=== PATIENT | male | born 1955 ===

== ENCOUNTER 2025-01-29 09:10 | Inpatient (IN) | payer MEDICARE ==
[~2025-01-29] VITALS: Ht 182.9 cm; Wt 89.5 kg
[2025-01-29] MEDS ORDERED: Ipratropium/Albuterol SulF 2.5-0.5MG/3 ML Amp INH ONE (09:45)
[2025-01-29] MEDS ORDERED: MethylPREDNISolone Sod Succ 125 MG Vial IV ONE (09:45)
[2025-01-29] MEDS ORDERED: NS 500 ML IV SCH (09:50)
[2025-01-29] MEDS ORDERED: Acetaminophen 500 MG Tab PO ONE (09:50)
[2025-01-29 09:59] LABS: BASOPHILS ABSOLUTE AUTO 0.02 K/mm3 (0.00-0.23); BASOPHILS PERCENT AUTO 0 % (0-2); EOSINOPHILS PERCENT AUTO 0 % (0-6); Hematocrit 43.2 % (37.0-53.0); Hemoglobin 14.2 g/dL (13.5-17.5); Mean Corpuscular HGB 33.5 pg (26.0-34.0); Mean Corpuscular HGB Conc 32.9 g/dL (31.5-36.5); Mean Corpuscular Volume 102 fL (80-100); Mean Platelet Volume 9.6 fL (9.1-12.4); NRBC ABSOLUTE 0.03 K/mm3 (0.00-0.02); NRBC Auto 0.2 /100 WBC (0.0-0.2); Platelet Count 125 K/mm3 (150-400); RDW Coefficient Variation 14.5 % (11.7-14.2); RDW Standard Deviation 54.4 fL (35.1-46.3); Red Blood Cell Count 4.24 M/mm3 (4.30-5.90); White Blood Cell Count 17.24 K/mm3 (4.00-11.30)
[2025-01-29 10:06] LABS: IMMATURE GRAN ABSOLUTE AUTO 0.08 K/mm3 (0.00-0.10); IMMATURE GRAN PERCENT AUTO 1 % (0-1); LYMPHOCYTES PERCENT AUTO 67 % (21-46); MONOCYTES ABSOLUTE AUTO 0.29 K/mm3 (0.16-1.47); MONOCYTES PERCENT AUTO 2 % (4-13); NEUTROPHILS ABSOLUTE AUTO 5.35 K/mm3 (1.96-9.15); NEUTROPHILS PERCENT AUTO 31 % (41-73)
[2025-01-29] MEDS ORDERED: Azithromycin 500 MG in NS 250 ML IV ONE (10:15)
[2025-01-29] MEDS ORDERED: CefTRIAXone Sodium 1,000 MG in NS 100 ML IV ONE (10:15)
[2025-01-29 10:19] LABS: Albumin, Blood 2.9 g/dL (3.4-5.0); Albumin/Globulin Ratio 0.8 (0.8-1.8); Bilirubin, Total 0.4 mg/dL (0.1-1.0); Bun/Creatinine Ratio 26.9 (12.0-20.0); Calcium, Blood 7.6 mg/dL (8.5-10.1); Creatinine, Blood 0.89 mg/dL (0.60-1.20); Globulin, Blood 3.5 g/dL (2.2-4.0); Potassium, Blood 3.5 mmol/L (3.5-5.5); Total Protein, Blood 6.4 g/dL (6.4-8.2)
[2025-01-29 10:39] LABS: Influenza B, PCR NEGATIVE (NEGATIVE); Resp Syncytial Virus, PCR NEGATIVE (NEGATIVE); SARS-Cov-2 (COVID-19) PCR, MMC NEGATIVE (NEGATIVE)
[2025-01-29 10:52] LABS: BASOPHILS PERCENT MAN 0 % (0-2); EOSINOPHILS PERCENT MAN 0 % (0-6); LYMPHOCYTES PERCENT MAN 65 % (21-46); MONOCYTES ABSOLUTE MAN 0.34 K/mm3 (0.16-1.47); MONOCYTES PERCENT MAN 2 % (4-13); NEUTROPHILS ABSOLUTE MAN 5.68 K/mm3 (1.96-9.15); SEG NEUTROPHILS PERCENT MAN 33 % (41-73); TOTAL CELLS COUNTED 100
[2025-01-29] MEDS ORDERED: Lactated Ringer's 1,000 ML IV SCH (12:05)
[2025-01-29] MEDS ORDERED: Oseltamivir Phosphate 75 MG Cap PO SCH (15:15)
[2025-01-29 15:52] LABS: Hematocrit 41.2 % (37.0-53.0); Hemoglobin 13.5 g/dL (13.5-17.5); Mean Corpuscular HGB 33.5 pg (26.0-34.0); Mean Corpuscular HGB Conc 32.8 g/dL (31.5-36.5); Mean Corpuscular Volume 102 fL (80-100); Mean Platelet Volume 9.6 fL (9.1-12.4); Platelet Count 118 K/mm3 (150-400); RDW Coefficient Variation 14.6 % (11.7-14.2); RDW Standard Deviation 55.6 fL (35.1-46.3); Red Blood Cell Count 4.03 M/mm3 (4.30-5.90); White Blood Cell Count 18.22 K/mm3 (4.00-11.30)
[2025-01-29] MEDS ORDERED: Albuterol 2.5 MG/3 ML VIAL INH PRN (17:10)
[2025-01-29] MEDS ORDERED: Ipratropium/Albuterol SulF 2.5-0.5MG/3 ML Amp INH SCH (17:10)
[2025-01-29 17:11] LABS: BAND PERCENT MAN 2 % (0-8); BASOPHILS PERCENT MAN 0 % (0-2); EOSINOPHILS PERCENT MAN 0 % (0-6); LYMPHOCYTES ABSOLUTE MAN 12.02 K/mm3 (0.84-5.20); LYMPHOCYTES PERCENT MAN 66 % (21-46); MONOCYTES ABSOLUTE MAN 0.18 K/mm3 (0.16-1.47); MONOCYTES PERCENT MAN 1 % (4-13); NEUTROPHILS ABSOLUTE MAN 6.01 K/mm3 (1.96-9.15); SEG NEUTROPHILS PERCENT MAN 31 % (41-73); TOTAL CELLS COUNTED 100
--- NOTE | 2025-01-29 17:20 | NUR ---
ARRIVAL PATIENT ARRIVES TO UNIT AND TRANSFERED OVER TO BED WITH ASSISTANCE. IS WEAK & NOT VERY STEADY ON FEET. IS ON TELE SHOWING SINUS RYTHM WITH RATE IN 80'S. SATTING BETWEEN 90-94% CURRENLTY ON HEATED HIGH FLOW AT 6 LITERS, DID NEED TO BE PLACED ON NON REBREATHER MASK ALONG WITH NASAL CANNULA FOR SATURATION IN 80'S. AT BEDSIDE. PATIENT DENIED ANY CHEST PAIN/PRESSURE. NO NAUSEA/VOMITTING. BLOOD PRESSURE MAP >65. PATIENT HAS CALL LIGHT WITHIN REACH, BED IN LOWEST BED AND ORIENTED TO THE ROOM. WAS ABLE TO EAT DINNER AND STATING NOTHING IS NEEDED AT THIS TIME.
[2025-01-29 17:29] VITALS: BP 150/74
[2025-01-29 19:50] VITALS: BP 134/80
[2025-01-29] MEDS ORDERED: Sennosides 8.6 MG Tab PO SCH (21:00)
[2025-01-29] MEDS ORDERED: MethylPREDNISolone Sod Succ 125 MG Vial IV SCH (21:00)
[2025-01-29] MEDS ORDERED: Pantoprazole Sodium 40 MG Injection IV SCH (21:00)
[2025-01-29] MEDS ORDERED: Lactobacil 2-S.Thermo-Bifido 1 1 Cap PO SCH (21:00)
[2025-01-29 23:56] VITALS: BP 121/96
--- NOTE | 2025-01-30 02:43 | NUR ---
NURSE NOTE PATIENT RESTING IN BED ON HIS LEFT SIDE ON SIMPLE FACE MASK AT 8L SATTING 92%. PT IS A ONE PERSON TRANSFER TO THE [facility] W/ [facility]. ABLE TO MAKE NEEDS KNOWN AND USES HIS CALL LIGHT. BP STABLE. DENIES PAIN OF ANY KIND. BED IN LOWEST POSTION, CALL LIGHT IN REACH.
[2025-01-30 04:05] VITALS: BP 138/77
--- NOTE | 2025-01-30 05:50 | NUR ---
SHIFT SUMMARY PT IS A+O X4 ABLE TO MAKE NEEDS KNOWN USING CALL LIGHT APPROPRIATE. PT IS A 1 PERSON TRANSFER W/ [facility], PT ALSO ABLE TO STAND AT BEDSIDE AND USE THE URINAL. TELE MONITOR SHOWS SINUS AT A RATE OF 70 AT THIS TIME. PT REMAINS ON SIMPLE FACE MASK BETWEEN 8-10 LITERS. PT IS CURRENTLY SATTING AT 91% ON 8 LITERS. HE IS SLEEPING ON HIS RIGHT SIDE W/ BED IN LOWEST POSTION, SIDE RAILS UP X2 AND CALL LIGHT WITHIN REACH. WILL CONTINUE WITH PLAN OF CARE AND REPORT TO ONCOMING RN.
[2025-01-30] MEDS ORDERED: Azithromycin 500 MG in NS 250 ML IV SCH (07:00)
[2025-01-30] MEDS ORDERED: Lactated Ringer's 1,000 ML IV SCH (07:00)
[2025-01-30 08:05] VITALS: BP 120/73
[2025-01-30] MEDS ORDERED: CefTRIAXone Sodium 2,000 MG in NS 100 ML IV SCH (09:00)
[2025-01-30] MEDS ORDERED: Enoxaparin 40 MG/0.4 ML SYR SC SCH (09:45)
[2025-01-30] MEDS ORDERED: AmLODIPine Besylate 5 MG Tab PO SCH (09:55)
[2025-01-30 10:21] LABS: BASOPHILS ABSOLUTE AUTO 0.03 K/mm3 (0.00-0.23); BASOPHILS PERCENT AUTO 0 % (0-2); EOSINOPHILS PERCENT AUTO 0 % (0-6); Hematocrit 38.5 % (37.0-53.0); Hemoglobin 12.7 g/dL (13.5-17.5); Mean Corpuscular HGB 34.2 pg (26.0-34.0); Mean Corpuscular Volume 104 fL (80-100); Platelet Count 125 K/mm3 (150-400); RDW Coefficient Variation 14.9 % (11.7-14.2); RDW Standard Deviation 57.5 fL (35.1-46.3); Red Blood Cell Count 3.71 M/mm3 (4.30-5.90); White Blood Cell Count 23.69 K/mm3 (4.00-11.30)
[2025-01-30 10:22] LABS: IMMATURE GRAN ABSOLUTE AUTO 0.06 K/mm3 (0.00-0.10); IMMATURE GRAN PERCENT AUTO 0 % (0-1); LYMPHOCYTES ABSOLUTE AUTO 12.45 K/mm3 (0.84-5.20); LYMPHOCYTES PERCENT AUTO 53 % (21-46); MONOCYTES ABSOLUTE AUTO 0.39 K/mm3 (0.16-1.47); MONOCYTES PERCENT AUTO 2 % (4-13); NEUTROPHILS ABSOLUTE AUTO 10.76 K/mm3 (1.96-9.15); NEUTROPHILS PERCENT AUTO 45 % (41-73)
[2025-01-30 10:55] LABS: Albumin, Blood 2.4 g/dL (3.4-5.0); Albumin/Globulin Ratio 0.7 (0.8-1.8); Bilirubin, Total 0.2 mg/dL (0.1-1.0); Bun/Creatinine Ratio 39.5 (12.0-20.0); Calcium, Blood 7.5 mg/dL (8.5-10.1); Creatinine, Blood 0.71 mg/dL (0.60-1.20); Globulin, Blood 3.3 g/dL (2.2-4.0); Potassium, Blood 3.9 mmol/L (3.5-5.5); Total Protein, Blood 5.7 g/dL (6.4-8.2)
[2025-01-30 11:19] LABS: BAND PERCENT MAN 1 % (0-8); BASOPHILS PERCENT MAN 0 % (0-2); EOSINOPHILS PERCENT MAN 0 % (0-6); LYMPHOCYTES ABSOLUTE MAN 13.02 K/mm3 (0.84-5.20); LYMPHOCYTES PERCENT MAN 55 % (21-46); MONOCYTES ABSOLUTE MAN 0.23 K/mm3 (0.16-1.47); MONOCYTES PERCENT MAN 1 % (4-13); NEUTROPHILS ABSOLUTE MAN 10.42 K/mm3 (1.96-9.15); SEG NEUTROPHILS PERCENT MAN 43 % (41-73); TOTAL CELLS COUNTED 100
[2025-01-30 11:35] VITALS: BP 134/77
[2025-01-30] MEDS ORDERED: MethylPREDNISolone Sod Succ 125 MG Vial IV SCH ×2 (12:00→21:00)
[2025-01-30] MEDS ORDERED: NORVASC5 MG PO (14:46)
[2025-01-30 17:30] VITALS: BP 126/74
--- NOTE | 2025-01-30 18:11 | NUR ---
SHIFT SUMMARY: PT A&OX4 CALM AND COOPERATIVE. SR 80S. 8L HNC. PT CURRENTLY SATTING 92%. SBA TO BATHROOM. LR INFUSING AT 150ML/HR. LEFT AC INFILTRATED WHILE INFUSING LR AND REMOVED. ANOTHER IV INSERTED ON RIGHT AC. PT TOLERATED WITH MINIMAL DISCOMFORT. BED IS LOW AND LOCKED AND CALL LIGHT WITHIN REACH. WILL CONTINUE PLAN OF CARE UNTIL REPORT GIVEN TO [facility] NURSE.
[2025-01-30 20:15] VITALS: BP 128/69
[2025-01-31 00:03] VITALS: BP 143/62
[2025-01-31 04:05] VITALS: BP 122/68
[2025-01-31 04:26] LABS: Hematocrit 37.6 % (37.0-53.0); Hemoglobin 12.1 g/dL (13.5-17.5); Mean Corpuscular HGB 33.8 pg (26.0-34.0); Mean Corpuscular HGB Conc 32.2 g/dL (31.5-36.5); Mean Corpuscular Volume 105 fL (80-100); Platelet Count 131 K/mm3 (150-400); RDW Coefficient Variation 14.9 % (11.7-14.2); RDW Standard Deviation 58.5 fL (35.1-46.3); Red Blood Cell Count 3.58 M/mm3 (4.30-5.90); White Blood Cell Count 26.63 K/mm3 (4.00-11.30)
[2025-01-31 04:48] LABS: Albumin, Blood 2.4 g/dL (3.4-5.0); Albumin/Globulin Ratio 0.7 (0.8-1.8); Bilirubin, Total 0.1 mg/dL (0.1-1.0); Bun/Creatinine Ratio 46.3 (12.0-20.0); Calcium, Blood 8.1 mg/dL (8.5-10.1); Creatinine, Blood 0.69 mg/dL (0.60-1.20); Globulin, Blood 3.3 g/dL (2.2-4.0); Potassium, Blood 4.1 mmol/L (3.5-5.5); Total Protein, Blood 5.7 g/dL (6.4-8.2)
--- NOTE | 2025-01-31 06:33 | NUR ---
SHIFT SUMMARY PATIENT A&O X4. HESTATED FEELING PAIN IN HIS LEFT HIP AND AN UPSET STOMACH, MEDICATION WAS OFFERED BUT PATIENT DENIED. PATIENT TITRATED BETWEEN 8L AND 10L O2 VIA HIGH FLOW NC. HE DENIED FEELING SHORT OF BREATH.
[2025-01-31 08:01] VITALS: BP 114/68
[2025-01-31] MEDS ORDERED: GuaiFENesin 600 MG TabCR PO SCH (09:00)
[2025-01-31 11:05] VITALS: BP 120/64
[2025-01-31 15:19] VITALS: BP 137/74
[2025-01-31] MEDS ORDERED: Loperamide HCl 2 MG Cap PO PRN (15:30)
--- NOTE | 2025-01-31 18:09 | NUR ---
SHIFT SUMMARY; ASSUMED CARE AT 0700 WITH ORIENTEE RN FLORIN. A/A/OX4, INDEPENDANT IN ROOM. 9L 02 VIA KS TO MAINTAIN SATS OF 90%. PLESANT AND COOPERATIVE WITH CARE. VSS, DIARRHEA STARTING THIS AM, UPDATED RESTIDENT TEAM. IMMODIUM ORDER PLACED. WILL CONTINUE TO MONITOR AND TREAT UNTIL REPORT GIVEN TO ONCOMING NOC SHIFT RN.
[2025-01-31 20:20] VITALS: BP 143/71
[2025-02-01] VITALS (7 sets, daily range): BP systolic 121–147; BP diastolic 59–83
[2025-02-01 04:34] LABS: BASOPHILS ABSOLUTE AUTO 0.05 K/mm3 (0.00-0.23); BASOPHILS PERCENT AUTO 0 % (0-2); EOSINOPHILS ABSOLUTE AUTO 0.02 K/mm3 (0.00-0.68); EOSINOPHILS PERCENT AUTO 0 % (0-6); Hematocrit 35.6 % (37.0-53.0); Hemoglobin 11.4 g/dL (13.5-17.5); IMMATURE GRAN ABSOLUTE AUTO 0.21 K/mm3 (0.00-0.10); IMMATURE GRAN PERCENT AUTO 1 % (0-1); LYMPHOCYTES ABSOLUTE AUTO 15.46 K/mm3 (0.84-5.20); LYMPHOCYTES PERCENT AUTO 55 % (21-46); MONOCYTES ABSOLUTE AUTO 0.43 K/mm3 (0.16-1.47); MONOCYTES PERCENT AUTO 2 % (4-13); Mean Corpuscular HGB 33.9 pg (26.0-34.0); Mean Corpuscular Volume 106 fL (80-100); Mean Platelet Volume 10.2 fL (9.1-12.4); NEUTROPHILS ABSOLUTE AUTO 12.01 K/mm3 (1.96-9.15); NEUTROPHILS PERCENT AUTO 43 % (41-73); Platelet Count 138 K/mm3 (150-400); RDW Coefficient Variation 14.9 % (11.7-14.2); RDW Standard Deviation 58.4 fL (35.1-46.3); Red Blood Cell Count 3.36 M/mm3 (4.30-5.90); White Blood Cell Count 28.18 K/mm3 (4.00-11.30)
[2025-02-01 05:02] LABS: Albumin, Blood 2.5 g/dL (3.4-5.0); Albumin/Globulin Ratio 0.8 (0.8-1.8); Bilirubin, Total 0.1 mg/dL (0.1-1.0); Bun/Creatinine Ratio 50.4 (12.0-20.0); Calcium, Blood 8.1 mg/dL (8.5-10.1); Creatinine, Blood 0.66 mg/dL (0.60-1.20); Globulin, Blood 3.3 g/dL (2.2-4.0); Potassium, Blood 4.1 mmol/L (3.5-5.5); Total Protein, Blood 5.8 g/dL (6.4-8.2)
--- NOTE | 2025-02-01 06:35 | NUR ---
SHIFT SUMMARY PATIENT A&O X4. VITAL SIGNS STABLE. PATIENT ON 9L O2 VIA OXYMASK. NO ACUTE CONDITIONS NOTED OVERNGIHT.
--- NOTE | 2025-02-01 16:51 | NUR ---
SHIFT SUMMARY PT A&Ox4, CALLS AND COMMUNICATES NEEDS APPROPRIATELY. IND IN ROOM. BP STABLE, SINUS 80'S, DENIES CP/PRESSURE. SpO2> 90% 4-8L VIA NC/MASK, FLOW INCREASED DURING COUGHING FITS AND ACTIVITY. REPORTS SOB WTIH ACTIVITY. NO C/O PAIN. CONTINENT OF URINE AND BOWEL. SOFT/FORMED BMs. NO OTHER EVENTS, WILL REPORT TO ONCOMING RN.
[2025-02-01] MEDS ORDERED: Pantoprazole Sodium 40 MG Tab PO SCH (16:59)
[2025-02-02 04:27] VITALS: BP 150/78
[2025-02-02 04:48] LABS: BASOPHILS ABSOLUTE AUTO 0.05 K/mm3 (0.00-0.23); BASOPHILS PERCENT AUTO 0 % (0-2); EOSINOPHILS PERCENT AUTO 0 % (0-6); Hematocrit 38.1 % (37.0-53.0); IMMATURE GRAN ABSOLUTE AUTO 0.21 K/mm3 (0.00-0.10); IMMATURE GRAN PERCENT AUTO 1 % (0-1); LYMPHOCYTES ABSOLUTE AUTO 19.37 K/mm3 (0.84-5.20); LYMPHOCYTES PERCENT AUTO 59 % (21-46); MONOCYTES ABSOLUTE AUTO 0.42 K/mm3 (0.16-1.47); MONOCYTES PERCENT AUTO 1 % (4-13); Mean Corpuscular HGB 33.8 pg (26.0-34.0); Mean Corpuscular HGB Conc 31.5 g/dL (31.5-36.5); Mean Corpuscular Volume 107 fL (80-100); NEUTROPHILS PERCENT AUTO 39 % (41-73); Platelet Count 153 K/mm3 (150-400); RDW Coefficient Variation 14.6 % (11.7-14.2); Red Blood Cell Count 3.55 M/mm3 (4.30-5.90); White Blood Cell Count 32.75 K/mm3 (4.00-11.30)
[2025-02-02 05:21] LABS: Albumin, Blood 2.7 g/dL (3.4-5.0); Albumin/Globulin Ratio 0.8 (0.8-1.8); Bilirubin, Total 0.3 mg/dL (0.1-1.0); Bun/Creatinine Ratio 47.8 (12.0-20.0); Calcium, Blood 8.2 mg/dL (8.5-10.1); Creatinine, Blood 0.63 mg/dL (0.60-1.20); Globulin, Blood 3.4 g/dL (2.2-4.0); Potassium, Blood 4.7 mmol/L (3.5-5.5); Total Protein, Blood 6.1 g/dL (6.4-8.2)
--- NOTE | 2025-02-02 06:20 | NUR ---
SHIFT SUMMARY PATIENT A&O X4. VITAL SIGNS ARE STABLE. PATIENT ON 6L O2 VIA NC. NO ACUTE CONDITIONS NOTED OVERNIGHT.
[2025-02-02 07:47] VITALS: BP 143/79
[2025-02-02] MEDS ORDERED: GUAI600T33 PO (10:57)
[2025-02-02] MEDS ORDERED: PANT40 PO (10:58)
[2025-02-02] MEDS ORDERED: VISBIOME 112.51 EACH PO (10:59)
[2025-02-02] MEDS ORDERED: CEFP200 PO (11:00)
[2025-02-02] MEDS ORDERED: PRED20 PO (11:01)
[2025-02-02] MEDS ORDERED: ALBU90OI INH (11:05)
[2025-02-02 12:27] VITALS: BP 156/81
--- NOTE | 2025-02-02 14:58 | NUR ---
A&Ox4 ON 3LNC, SITTING UP IN CHAIR W/VISITORS IN ROOM. PT AMBULATES INDEPENDENTLY TO AND FROM THE RESTROOM. HE IS READY TO DC, JUST WAITING ON HOME O2 TO BE DELIVERED.
--- NOTE | 2025-02-02 16:11 | NUR ---
PT DC'D HOME ON 3LNC WHILE @ REST AND 8LNC ON EXERTION. TWO O2 TANKS WHERE DELIVERED TO PTS ROOM FOR PT TO DC HOME AND COMPANY WILL MEET PT @ HOME TO DELIVER THE REST OF THE EQUIPMENT NEEDED. WENT OVER MEDICATIONS TO BE CONTINUED @ HOME W/PT AND AND ANSWERED ALL QUESTIONS THAT THEY HAD.
[2025-02-06 09:04] LABS: Influenza A, PCR POSITIVE (NEGATIVE)
== END 2025-02-02 15:41 | disposition home or self-care (01) | DRG 871 ==
LOC: ER 09:10 → ERHOLD 11:41 → PCU 11:41
PROVIDERS: Emergency Medicine; Family Medicine; ADMIT Hospitalist
DX: A41.89 Other specified sepsis (principal); J10.00 Influenza due to other identified influenza virus with unspecified type of pneumonia; J96.01 Acute respiratory failure with hypoxia; J44.0 Chronic obstructive pulmonary disease with (acute) lower respiratory infection; J44.1 Chronic obstructive pulmonary disease with (acute) exacerbation; C91.10 Chronic lymphocytic leukemia of B-cell type not having achieved remission; I10 Essential (primary) hypertension; F17.210 Nicotine dependence, cigarettes, uncomplicated; F10.10 Alcohol abuse, uncomplicated
CPT/HCPCS: 0241U; 36415; 71045; 80053; 83605; 83880; 84145; 84484; 85025; 85027; 87040; 92610; 93005; 93010; 93306; 94640; 94664; 94761; 94762; 96365; 96375; 99285-25; 99406; A9270; J0456; J0696; J2470; J2919; J7030; J7050; J7120